=== PATIENT | female | born 1960 | race Caucasian/White ===

== ENCOUNTER 2017-04-22 12:20 | Inpatient (IN) | payer SELFPAY ==
[~2017-04-22] VITALS: Ht 160 cm; Wt 63.2 kg
[~2017-04-22 12:20] MED LIST: LISI-357 PO; MUCI600T PO; TYLE3 PO
[2017-04-22 12:23] VITALS: BP 177/97; PULSE 93; RESP 20; TEMP 99.2; O2SAT 97
--- NOTE | 2017-04-22 13:08 | PD ---
HPI Chief Complaint: Pain: Acute or Chronic Time Seen by Provider: 12:56 Travel History International Travel<30 days: No Contact w/Intl Traveler<30days: No Traveled to known affect area: No History of Present Illness HPI 56-year-old female with history of hypertension, presents to emergency department for evaluation of a right calcaneal fracture. Patient was seen and evaluated at [facility] April 18. She is diagnosed with a calcaneal fracture. She was scheduled to follow-up with Dr. Hassan on Wednesday, however that appointment was canceled. Agent went to the office today and was sent to [place] for evaluation and admission for surgical intervention. Patient reports pain on the right heel, controlled with her pain medication at home. Moderate in severity. She states at times her toes do feel numb. She denies any fever or chills. No new injury. She has no other symptoms to report. PFSH Past Medical History Diminished Hearing: No Hypertension: Yes (does not take meds for/no primary doctor) LMP: na Menopausal: Yes : 2 Para: 2 Tubal Ligation: Yes Past Surgical History Section: Yes Gynecologic Surgery: Yes (c section/tubal) Social History Alcohol Use: Yes (3 beers daily) Tobacco Use: No Substance Use: No Allergies-Medications (Allergen,Severity, Reaction): Coded Allergies: No Known Allergies (Unverified Allergy, Unknown, 04/22/17) Reported Meds & Prescriptions Reported Meds & Active Scripts Active Review of Systems Except as stated in HPI: all other systems reviewed are Neg Physical Exam Narrative GENERAL: Well-nourished female patient, sitting up in bed in no acute distress. SKIN: Focused skin assessment warm/dry. HEAD: Atraumatic. Normocephalic. EYES: Pupils equal and round. No scleral icterus. No injection or drainage. ENT: No nasal bleeding or discharge. Mucous membranes pink and moist. NECK: Trachea midline. No JVD. CARDIOVASCULAR: Regular rate and rhythm. No murmur appreciated. RESPIRATORY: No accessory muscle use. Clear to auscultation. Breath sounds equal bilaterally. GASTROINTESTINAL: Abdomen soft, non-tender, nondistended. Hepatic and splenic margins not palpable. MUSCULOSKELETAL: No obvious deformities. No clubbing. No cyanosis. No edema. Right lower extremity splint in place. Patient is able to wiggle the toes of the affected extremity. Cap refill is within normal limits. There is some bruising noted over the distal aspect of the right dorsal foot. NEUROLOGICAL: Awake and alert. No obvious cranial nerve deficits. Motor grossly within normal limits. Normal speech. PSYCHIATRIC: Appropriate mood and affect; insight and judgment normal. Data Data Last Documented VS Vital Signs Date Time Temp Pulse Resp B/P (MAP) Pulse Ox O2 Delivery O2 Flow Rate FiO2 04/22/17 12:23 99.2 93 20 177/97 (123) 97 Room Air Orders Orders Iv Access Insert/Monitor (04/22/17 14:09) Complete Blood Count With Diff (04/22/17 14:09) Basic Metabolic Panel (Bmp) (04/22/17 14:09) Coag Profile (04/22/17 14:09) Electrocardiogram (04/22/17 ) Chest, Single Ap (04/22/17 ) Admit Order (Ed Use Only) (04/22/17 14:36) Consult Orthopedic (04/22/17 ) Labs Laboratory Tests Test 04/22/17 14:20 White Blood Count 7.1 TH/MM3 Red Blood Count 3.65 MIL/MM3 Hemoglobin 11.5 GM/DL Hematocrit 34.5 % Mean Corpuscular Volume 94.4 FL Mean Corpuscular Hemoglobin 31.6 PG Mean Corpuscular Hemoglobin Concent 33.5 % Red Cell Distribution Width 13.1 % Platelet Count 260 TH/MM3 Mean Platelet Volume 7.8 FL Neutrophils (%) (Auto) 85.9 % Lymphocytes (%) (Auto) 7.1 % Monocytes (%) (Auto) 6.4 % Eosinophils (%) (Auto) 0.5 % Basophils (%) (Auto) 0.1 % Neutrophils # (Auto) 6.1 TH/MM3 Lymphocytes # (Auto) 0.5 TH/MM3 Monocytes # (Auto) 0.5 TH/MM3 Eosinophils # (Auto) 0.0 TH/MM3 Basophils # (Auto) 0.0 TH/MM3 CBC Comment DIFF FINAL Differential Comment Prothrombin Time 10.9 SEC Prothromb Time International Ratio 1.1 RATIO Activated Partial Thromboplast Time 28.5 SEC Blood Urea Nitrogen 6 MG/DL Creatinine 0.50 MG/DL Random Glucose 87 MG/DL Calcium Level 9.0 MG/DL Sodium Level 140 MEQ/L Potassium Level 3.9 MEQ/L Chloride Level 107 MEQ/L Carbon Dioxide Level 25.4 MEQ/L Anion Gap 8 MEQ/L Estimat Glomerular Filtration Rate 128 ML/MIN MDM Medical Decision Making Medical Screen Exam Complete: Yes Emergency Medical Condition: Yes Medical Record Reviewed: Yes Differential Diagnosis Fracture versus sprain versus contusion versus medical clearance versus normal examination Narrative Course 56-year-old female presents to emergency department for evaluation of a right calcaneal fracture, diagnosed Wednesday after a trip and fall. Patient has a splint on the right lower extremity. It is neurovascularly intact. I have contacted Dr. Callahan's office to discuss the patient. I received a call back from ADWOA Natarajan. He requests admission to medicine, nothing by mouth after midnight, and hopeful surgical intervention tomorrow if swelling isn't too much. He asks if the patient is in a splint that she stay in it until tomorrow when they evaluate the foot. Plan is discussed with the patient. I discussed the patient with Dr. Carrillo, however was managed services sales consultant. Patient will be admitted to his service with a consult placed to Dr. Callahan. Diagnosis Primary Impression: Calcaneal fracture Qualified Codes: S92.001D - Unspecified fracture of right calcaneus, subsequent encounter for fracture with routine healing Admitting Information Admitting Physician Requests: Admit Scripts No Active Prescriptions or Reported Meds Condition: Stable Joceline Andrew Apr 22, 2017 13:08
--- NOTE | 2017-04-22 14:32 | RADRPT ---
EXAM DATE/TIME: 04/22/2017 14:12 [facility] COMPARISON: CHEST SINGLE AP, January 26, 2014, 8:16. INDICATIONS : Evaluate for pneumonia, pneumothorax, or other communicable diseases. Pre op for right foot surgery. MEDICAL HISTORY : Smoker. SURGICAL HISTORY : None. ENCOUNTER: Initial ACUITY: 1 day PAIN SCORE: 0/10 LOCATION: Bilateral chest FINDINGS: A single view of the chest demonstrates the lungs to be symmetrically aerated without evidence of mas s, infiltrate or effusion. The cardiomediastinal contours are unremarkable. Osseous structures are intact. CONCLUSION: Normal examination. Jean Rae MD on April 22, 2017 at 14:29 Board Certified Radiologist. This report was verified electronically.
[2017-04-22] MEDS: SODIUM CHLOR 0.9% 1000 ML INJ 1,000 ML IV SCH (14:37)
[2017-04-22 14:39] LABS: AUTOMATED NEUTROPHIL # 6.1 TH/MM3 (1.8-7.7); BASOPHIL % 0.1 % (0.0-2.0); EOSINOPHIL % 0.5 % (0.0-4.0); HEMATOCRIT 34.5 % (35.0-46.0); HEMO FLAGS DIFF FINAL; LYMPH % 7.1 % (9.0-44.0); LYMPHOCYTE # 0.5 TH/MM3 (1.0-4.8); MEAN CELL VOLUME 94.4 FL (80.0-100.0); MEAN CORPUSCULAR HEMOGLOBIN 31.6 PG (27.0-34.0); MEAN CORPUSCULAR HGB CONC 33.5 % (32.0-36.0); MONO % 6.4 % (0.0-8.0); NEUT % 85.9 % (16.0-70.0); PLATELET COUNT 260 TH/MM3 (150-450); RED BLOOD COUNT 3.65 MIL/MM3 (4.00-5.30); RED CELL DISTRIBUTION WIDTH 13.1 % (11.6-17.2); WHITE BLOOD COUNT 7.1 TH/MM3 (4.0-11.0)
[2017-04-22] MEDS ORDERED: NALOXONE HCL 0.4 MG/ML AMP IV PUSH PRN (14:45)
[2017-04-22] MEDS ORDERED: LACTULOSE SYRUP 20 GM/30 ML CUP PO PRN (14:45)
[2017-04-22] MEDS ORDERED: ONDANSETRON HCL 4 MG/2 ML VIAL IVP PRN (14:45)
[2017-04-22] MEDS ORDERED: SENNOSIDES 8.6 MG TAB PO PRN (14:45)
[2017-04-22] MEDS ORDERED: BISACODYL 10 MG SUPP RECTAL PRN (14:45)
[2017-04-22] MEDS ORDERED: MAGNESIUM HYDROXIDE SUSP 30 ML CUP PO PRN (14:45)
[2017-04-22] MEDS ORDERED: ENALAPRILAT 1.25 MG/ML VIAL IV PUSH PRN (14:45)
[2017-04-22 14:55] LABS: BICARBONATE 25.4 MEQ/L (21.0-32.0); POTASSIUM 3.9 MEQ/L (3.5-5.1)
[2017-04-22 15:03] LABS: APTT (PATIENT) 28.5 SEC (24.3-30.1); INTERNATIONAL NORMALIZED RATIO 1.1 RATIO; PROTHROMBIN TIME - PATIENT 10.9 SEC (9.8-11.6)
--- NOTE | 2017-04-22 17:52 | HHI.HP ---
HPI Service [facility] Primary Care Physician Unknown Admission Diagnosis R CALCANEAL FX Diagnoses: Travel History International Travel<30 Days: No Contact w/Intl Traveler <30 Da: No Traveled to Known Affected Are: No History of Present Illness 56-year-old female with reported history of high blood pressure not on medication, who presents with constant sharp right foot pain following injury on Wednesday night. She fell with her entire weight on her right foot, was seen at [facility], diagnosed with calcaneal fracture, splinted, and discharged home. She saw orthopedics today, and have recommended admission to hospital for planned surgery tomorrow. Patient says that she otherwise feels all right. Denies any chest pain, shortness breath, nausea, vomiting, lightheadedness, dizziness. Denies any history of exertional chest pain. Review of Systems Except as stated in HPI: all other systems reviewed are Neg Past Family Social History Past Medical History Patient reports history of high blood pressure not on medication Past Surgical History Bilateral tubal ligation. Denies any other surgeries. Reported Medications patient denies taking any medications. Allergies: Coded Allergies: No Known Allergies (Unverified Allergy, Unknown, 04/22/17) Family History Mother passed secondary to CHF. Heart disease began in her 70s. Father in his 60s secondary to kidney failure. Social History Patient smoked one half pack per day cigarettes for the past 15 years. Patient drinks 2 beers on average every other day, sometimes more on the weekends. Denies ever having a problem with alcohol. On intake form, patient reported 3 beers daily. Denies any illicit drug use. Physical Exam Vital Signs Vital Signs Date Time Temp Pulse Resp B/P (MAP) Pulse Ox O2 Delivery O2 Flow Rate FiO2 04/22/17 12:23 99.2 93 20 177/97 (123) 97 Room Air Physical Exam GENERAL: patient sitting up in bed. Appears comfortable. Alert and oriented 3. SKIN: Warm and dry. HEAD: Atraumatic. Normocephalic. EYES: Pupils equal and round. No scleral icterus. No injection or drainage. ENT: No nasal bleeding or discharge. Mucous membranes pink and moist. NECK: Trachea midline. No JVD. CARDIOVASCULAR: Regular rate and rhythm. RESPIRATORY: No accessory muscle use. Clear to auscultation. Breath sounds equal bilaterally. GASTROINTESTINAL: Abdomen soft, non-tender, nondistended. Hepatic and splenic margins not palpable. MUSCULOSKELETAL: Extremities without clubbing, cyanosis, or edema. No obvious deformities. NEUROLOGICAL: Awake and alert. No obvious cranial nerve deficits. Motor grossly within normal limits. Five out of 5 muscle strengthin bilateral upper extremities. Right lower leg in splint. Distal profusion intact. Distal sensation intact.Normal speech. PSYCHIATRIC: Appropriate mood and affect; insight and judgment normal. Laboratory Laboratory Tests Test 04/22/17 14:20 White Blood Count 7.1 Red Blood Count 3.65 Hemoglobin 11.5 Hematocrit 34.5 Mean Corpuscular Volume 94.4 Mean Corpuscular Hemoglobin 31.6 Mean Corpuscular Hemoglobin Concent 33.5 Red Cell Distribution Width 13.1 Platelet Count 260 Mean Platelet Volume 7.8 Neutrophils (%) (Auto) 85.9 Lymphocytes (%) (Auto) 7.1 Monocytes (%) (Auto) 6.4 Eosinophils (%) (Auto) 0.5 Basophils (%) (Auto) 0.1 Neutrophils # (Auto) 6.1 Lymphocytes # (Auto) 0.5 Monocytes # (Auto) 0.5 Eosinophils # (Auto) 0.0 Basophils # (Auto) 0.0 CBC Comment DIFF FINAL Differential Comment Prothrombin Time 10.9 Prothromb Time International Ratio 1.1 Activated Partial Thromboplast Time 28.5 Blood Urea Nitrogen 6 Creatinine 0.50 Random Glucose 87 Calcium Level 9.0 Sodium Level 140 Potassium Level 3.9 Chloride Level 107 Carbon Dioxide Level 25.4 Anion Gap 8 Estimat Glomerular Filtration Rate 128 Result Diagram: 04/22/17 1420 04/22/17 1420 Imaging Last Impressions Chest X-Ray 04/22/17 0000 Signed Impressions: Service Date/Time: April 14:12 - CONCLUSION: Normal examination. MD Alfred Sierra VTE Risk Assessment Alfred VTE Risk Assessment: Mod/High Risk (score >= 2) VTE Pharm Contraindication: surgery in am [facility] Contraindication: LE injury/wound [place] Risk Assessment Model Point Value = 1 Point Value = 2 Point Value = 3 Point Value = 5 Age 41-60 Minor surgery BMI > 25 kg/m2 Swollen legs Varicose veins or History of unexplained or recurrent spontaneous Oral contraceptives or hormone replacement Sepsis (< 1 month) Serious lung disease, including pneumonia (< 1 month) Abnormal pulmonary function Acute myocardial infarction Congestive heart failure (< 1 month) History of inflammatory bowel disease Medical patient at bed rest Age 61-74 Arthroscopic surgery Major open surgery (> 45 min) Laparoscopic surgery (> 45 min) Malignancy Confined to bed (> 72 hours) Immobilizing plaster cast Central venous access Age >= 75 History of VTE Family history of VTE Factor V Leiden Prothrombin [id number] Lupus anticoagulant Anticardiolipin antibodies Elevated serum homocysteine Heparin-induced thrombocytopenia Other congenital or acquired thrombophilia Stroke (< 1 month) Elective arthroplasty Hip, pelvis, or leg fracture Acute spinal cord injury (< 1 month) Prophylaxis Regimen Total Risk Factor Score Risk Level Prophylaxis Regimen 0-1 Low Early ambulation 2 Moderate Order ONE of the following: *Sequential Compression Device (SCD) *Heparin 5000 units SQ BID 3-4 Higher Order ONE of the following medications: *Heparin 5000 units SQ TID *Enoxaparin/Lovenox 40 mg SQ daily (WT < 150 kg, CrCl > 30 mL/min) *Enoxaparin/Lovenox 30 mg SQ daily (WT < 150 kg, CrCl > 10-29 mL/min) *Enoxaparin/Lovenox 30 mg SQ BID (WT < 150 kg, CrCl > 30 mL/min) AND/OR *Sequential Compression Device (SCD) 5 or more Highest Order ONE of the following medications: *Heparin 5000 units SQ TID (Preferred with Epidurals) *Enoxaparin/Lovenox 40 mg SQ daily (WT < 150 kg, CrCl > 30 mL/min) *Enoxaparin/Lovenox 30 mg SQ daily (WT < 150 kg, CrCl > 10-29 mL/min) *Enoxaparin/Lovenox 30 mg SQ BID (WT < 150 kg, CrCl > 30 mL/min) AND *Sequential Compression Device (SCD) Assessment and Plan Assessment and Plan //Left foot calcaneal fracture = Management as per orthopedics. = Nothing by mouth at midnight. //Hypertensive. -Systolic blood pressures in the 170s on admission. Not on medication home. Enalapril as needed. //Suspected alcohol overuse. //Possible alcohol withdrawal. = We'll monitor for signs of alcohol withdrawal. Patient denies any history of withdrawal. = As patient is mildly tachycardic, somewhat hypertensive with systolics in the 170s. Will order CIWA protocol given significant alcohol use, reported as 3 beers daily. Continue to monitor. //Tobacco abuse. Cessation counseling provided. //DVT prophylaxis. SCDs ordered as able. Anticoagulation As per orthopedic surgery. Discussed Condition With patient,, nurse, ER physician Physician Certification 2 Midnight Certification Type: Admission for Inpatient Services Order for Inpatient Services The services are ordered in accordance with Medicare regulations or non- Medicare payer requirements, as applicable. In the case of services not specified as inpatient-only, they are appropriately provided as inpatient services in accordance with the 2-midnight benchmark. Estimated LOS (days): 2 days is the estimated time the patient will need to remain in the hospital, assuming treatment plan goals are met and no additional complications. Post-Hospital Plan: Not yet determined Carson Carrillo MD Apr 22, 2017 17:52
[2017-04-22 17:55] VITALS: BP 162/97; PULSE 76; RESP 18; TEMP 97.4; O2SAT 96
[2017-04-22] MEDS ORDERED: LORazepam 1 MG TAB PO PRN (18:15)
[2017-04-22] MEDS ORDERED: LORazepam 2 MG TAB PO PRN (18:15)
[2017-04-22] MEDS ORDERED: FLUMAZENIL 0.5 MG/5 ML VIAL IV PUSH PRN (18:15)
[2017-04-22] MEDS ORDERED: LORazepam 2 MG/ML VIAL IV PUSH PRN ×4 (18:15)
[2017-04-22 18:30] LABS: INDIRECT BILIRUBIN 0.4 MG/DL (0.0-0.8); TOTAL BILIRUBIN ADULT 0.5 MG/DL (0.2-1.0)
[2017-04-22] MEDS ORDERED: MORPHINE SULFATE 2 MG/ML INJ IV PUSH PRN (20:15)
[2017-04-22] MEDS ORDERED: METOPROLOL TARTRATE 25 MG TAB PO PRN (20:30)
[2017-04-22] MEDS ORDERED: SODIUM CHLORID 0.9% 500 ML IV PRN (20:30)
[2017-04-22] MEDS ORDERED: CHLORHEXIDINE GLUCONATE 2 % 1 PACK (2 CLOTHS) TOPICAL PRN (20:30)
[2017-04-22] MEDS ORDERED: POVIDONE IODINE 5% (ANTISEPSIS KIT) 4 APPLICATIONS EACH NARE PRN (20:30)
[2017-04-22] MEDS ORDERED: LACTATED RINGER'S 1000 ML IV PRN (20:30)
[2017-04-22] MEDS: SODIUM CHLORIDE 0.9% FLUSH 10 ML FLUSH IV FLUSH SCH (20:34)
[2017-04-22] MEDS: DOCUSATE SODIUM 50 MG/SENNA 8.6 MG TAB PO SCH (20:35)
[2017-04-22] MEDS: ACETAMINOPHEN/HYDROcodone 325 MG/5 MG TAB PO PRN (20:35)
[2017-04-22 20:40] VITALS: BP 151/95; PULSE 74; RESP 16; TEMP 97.9; O2SAT 95
[2017-04-23 01:00] VITALS: BP 135/77; PULSE 81; RESP 16; TEMP 97.3; O2SAT 98
[2017-04-23 04:50] VITALS: BP 125/77; PULSE 81; RESP 16; TEMP 97.3; O2SAT 96
[2017-04-23] MEDS: ACETAMINOPHEN/HYDROcodone 325 MG/5 MG TAB PO PRN (05:50)
[2017-04-23] MEDS: SODIUM CHLOR 0.9% 1000 ML INJ 1,000 ML IV SCH ×2 (05:52→21:02)
[2017-04-23] MEDS ORDERED: HYDR-3583 PO (06:53)
[2017-04-23] MEDS ORDERED: VITA500012 PO (06:53)
[2017-04-23] MEDS ORDERED: XARE10TA PO (06:53)
[2017-04-23] MEDS ORDERED: WALKER/ADULT/FO1 MIS (06:53)
[2017-04-23] MEDS ORDERED: VITA2000 PO (06:53)
[2017-04-23] MEDS ORDERED: CALCTAB19 PO (06:53)
--- NOTE | 2017-04-23 07:19 | PD.ORT.PN ---
Subjective Subjective Remarks s/p right calcaneus fx approx 6 days ago in [facility]. states has right heel pain. no other complaints Objective Vitals Vital Signs Date Time Temp Pulse Resp B/P (MAP) Pulse Ox O2 Delivery O2 Flow Rate FiO2 04/23/17 01:00 97.3 81 16 135/77 (96) 98 04/22/17 20:40 97.9 74 16 151/95 (113) 95 04/22/17 17:55 97.4 76 18 162/97 (118) 96 04/22/17 12:23 99.2 93 20 177/97 (123) 97 Room Air I/O 04/22/17 04/22/17 04/22/17 04/23/17 04/23/17 04/23/17 07:00 15:00 23:00 07:00 15:00 23:00 Intake Total 360 ml Balance 360 ml Intake Oral 360 ml # Voids 2 # Bowel Movements 0 Result Diagram: 04/22/17 1420 04/22/17 1420 Other Results Laboratory Tests Test 04/22/17 14:20 Prothromb Time International Ratio 1.1 RATIO Prothrombin Time 10.9 SEC (9.8-11.6) Objective Remarks RLE: +short leg splint. removed and ankle visualized. 1+ swelling and bruising. nvi Assessment & Plan Assessment and Plan 1) right calcaneus fx -npo -sign consents -surgery today for ORIF of calcaneus POST OP: -NWB -maintain splint at all times -elevate -Lovenox and DC with Xarelto -Scripts on chart -plan for DC home with walker when able -f/u with Sindy or ADWOA in 2 weeks Delgado Golden/Heel Stainer PA Apr 23, 2017 07:19
[2017-04-23 08:53] VITALS: BP 120/77; PULSE 67; RESP 18; TEMP 96.9; O2SAT 96
[2017-04-23 08:54] VITALS: BP 120/77; PULSE 67; RESP 18; TEMP 96.9; O2SAT 96
[2017-04-23] MEDS: DOCUSATE SODIUM 50 MG/SENNA 8.6 MG TAB PO SCH ×2 (09:00→20:59)
[2017-04-23] MEDS: SODIUM CHLORIDE 0.9% FLUSH 10 ML FLUSH IV FLUSH SCH ×2 (09:00→21:02)
[2017-04-23] MEDS ORDERED: ceFAZolin 2 GM PREMIX 50 ML ONE (10:07)
[2017-04-23] MEDS ORDERED: VANCOMYCIN HCL 1000 MG VIAL ONE (10:07)
[2017-04-23] MEDS ORDERED: ACETAMINOPHEN 1000 MG/100 ML 100 ML IV ONE (10:07)
[2017-04-23] MEDS: GENTAMICIN SULFATE 80 MG/2 ML VIAL ONE (12:00)
[2017-04-23] MEDS ORDERED: diphenhydrAMINE HCL 25 MG CAP PO PRN (13:15)
[2017-04-23] MEDS ORDERED: Post-op Orders (for Pharmacy) XX ONE (13:15)
[2017-04-23] MEDS ORDERED: MORPHINE SULFATE 4 MG/ML INJ IV PUSH PRN (13:15)
--- NOTE | 2017-04-23 13:17 | PD.OP ---
cc: Tanner Merritt MD Operative Report Date of Surgery: Apr 23, 2017 Preoperative Diagnosis: Displaced comminuted right calcaneus fracture Postoperative Diagnosis: Same Procedure: Open reduction internal fixation right calcaneus Anesthesia: Gen. Surgeon: Tanner Merritt Slat Basket Maker Helper(s): JAVIER Paredes PA-C The surgical procedure was assisted by my physician assistant toddler teacher. My P.A. presence was necessary throughout this case for the manipulation and positioning of the surgical extremity. My P.A. was assisting me throughout the duration of this procedure. The skill set of a physician assistant toddler teacher was medically necessary to complete this procedure. During the surgical case the clinical pharmacy technician was working at the back table and the physician assistant toddler teacher was directly assisting me. Operation and Findings: Tourniquet time -- 42 minutes at 250 mmHg Informed consent obtained, operative site was marked. The foot and ankle were seen and evaluated this morning. Soft tissue swelling had significantly improved and appeared to be ready for surgery. He was brought to the operating room and placed on the operating room table. He was given intravenous sedation, general endotracheal anesthesia. He received IV antibiotics and was placed in the lateral decubitus position. Foot and leg were prepped with alcohol, followed by Hibiclens, draped in usual sterile fashion. A time out procedure was preformed. The procedure began with a 4 centimeter incision over the lateral aspect of the calcaneus centers over the subtalar joint. A full thickness flap was carefully elevated. The perineal tendons were also mobilized. Periosteum was elevated off the calcaneous. At this point the leg was elevated. The tourniquet was inflated. Attention was now turned to exposure of the calcaneus. The lateral wall was comminuted. A Steinmann pin was placed into the talus and into the calcaneus. Laminar thimble press operator was now placed to help distract the fracture. Articular surface was now visualized. Articular surface was in several fragments. The medial fragment was elevated and reduced up to the talus and the K-wire was used to hold provisional fixation. Next, the lateral and posterior fragments of the posterior facet were reduced. The talus was used as a template for reduction. The K-wires were used to hold provisional fixation. The laminar thimble press operator was now used to distract the posterior tuberosity. A Shands pin was placed to help joystick the insurance business analyst tuberosity into appropriate position. Multiple K-wires result provisional fixation. Multiplanar fluoroscopy confirmed well aligned fracture. The anterior process was now reduced. This keyed into appropriate position. Additional K wires were used to hold provisional fixation. At this point a Synthes calcaneus plate was selected. Plate was placed underneath the peroneal tendons. Plate was provisionally held the bone with K wires. 2.7 cortical lag screws were placed through the plate to compress the posterior facet fragments. Good compression was obtained. Additional cortical and locking screws were placed into the plate. 4 small percutaneous incisions were made around the posterior heel. 3 long 3.5 cortical screws were placed in the posterior tuberosity into the anterior process. All screws were predrilled and premeasured for appropriate lengths. Fluoroscopy confirmed appropriate alignment of fracture. Final fluoroscopy confirmed well aligned fracture with well-placed hardware. Wound was thoroughly irrigated. Tourniquet was released. Hemostasis was confirmed. Fascia was closed with 0 Vicryl, subcutaneous tissues closed with 3-0 Vicryl, and skin was closed with 3-0 nylon. Sterile dressings were applied. Patient was placed into a well molded well-padded splint. Patient was transferred to recovery in stable condition. Tanner Merritt MD Apr 23, 2017 13:17
[2017-04-23] MEDS ORDERED: DO NOT ADM ANY ANTICOAGULANT DRUGS PRN (13:42)
[2017-04-23] MEDS ORDERED: *morphine SULFATE 10 MG/ML PERIprocedure ONLY ONE (13:52)
[2017-04-23] MEDS: LACTATED RINGER'S 1000 ML INJ 1,000 ML IV SCH ×2 (14:02→21:02)
[2017-04-23] MEDS ORDERED: ceFAZolin 2 GM PREMIX 50 ML IV SCH (16:00)
--- NOTE | 2017-04-23 16:02 | RADRPT ---
EXAM DATE/TIME: 04/23/2017 12:53 [facility] COMPARISON: No previous studies available for comparison. INDICATIONS : Surgical repair of right heel. MEDICAL HISTORY : None. SURGICAL HISTORY : None. ENCOUNTER: Initial ACUITY: 1 day PAIN SCORE: Non-responsive. LOCATION: Right heel FINDINGS: 5 magnified C-arm spot views are centered over the calcaneus and labeled right. These images show no orthopedic plate and multiple orthopedic screws traversing the calcaneus. Good alignment seen on thes e limited images. The screws appear contained within the cortical confines of the calcaneus. CONCLUSION: Limited images as detailed above. Shiv Clements Jr., MD on April 23, 2017 at 15:58 Board Certified Radiologist. This report was verified electronically.
[2017-04-23 16:35] VITALS: BP 123/77; PULSE 104; RESP 18; TEMP 97.6; O2SAT 96
[2017-04-23] MEDS: KETOROLAC TROMETHAMINE 30 MG/ML (IVP) VIAL IV PUSH SCH (17:05)
[2017-04-23] MEDS: diphenhydrAMINE HCL 25 MG CAP PO PRN (17:06)
--- NOTE | 2017-04-23 17:10 | MB ---
cc: ADRIEN ARVIZU DATE OF ADMISSION 04/22/2017 DATE OF CONSULTATION 04/23/2017 REASON FOR CONSULTATION Comminuted displaced right calcaneus fracture. CONSULTING PHYSICIAN Dr. Carrillo. HISTORY Ester is a 56-year-old female who had an injury to her foot approximately six days ago. She was walking down a hill and fell. She injured her right foot. She initially went to [facility]. X-rays and CT scan revealed a comminuted calcaneus fracture. She was subsequently discharged home. She presented back to the emergency room at [place]. The patient was found to have a displaced right calcaneus fracture. She is currently awake and alert on the orthopedic floor. Her only complaint is her right foot. Pain is worse with movement. She has been smoking approximately one-third pack of surgery per day. She has been trying to quit. PAST MEDICAL HISTORY ILLNESSES Hypertension. SURGERIES Tubal ligation. MEDICATIONS None prior to hospitalization. ALLERGIES None. FAMILY HISTORY Positive for CHF in her mother kidney failure in her father. SOCIAL HISTORY The patient has smoked approximately one-half pack a day for the past 15 years. She drinks alcohol approximately two drinks every other day. She denies drug use. REVIEW OF SYSTEMS The patient denies headache, visual changes, neck pain, chest pain, shortness of breath, abdominal pain, nausea, vomiting or recent weight loss, numbness or tingling of extremities. She denies bowel or bladder incontinence. She complains of right ankle pain. PHYSICAL EXAMINATION GENERAL: The patient is a thin 56-year-old female in no acute distress. She is awake and alert. She is alert and oriented x3. She is in no acute distress. VITAL SIGNS: Temperature 96.9, pulse 67, respirations 18, blood pressure 120/77, O2 sat 96% on room air. HEAD: The patient is normocephalic. Pupils are equal. NECK: Soft, nontender. Trachea is midline. ABDOMEN: Soft, nontender, nondistended. EXTREMITIES: Examination of bilateral upper extremities reveals no pain with shoulder, elbow or wrist motion. She has intact sensation in all fingers. She has good capillary refill in all fingers. Skin is intact in both hands. Examination of the left leg reveals no pain with hip, knee or ankle motion. Skin is intact. Dorsalis pedis pulse is palpable. Sensation is intact. Examination of the right leg reveals no pain with hip or knee motion. She has mild swelling of the ankle. Skin is intact. She is tender to palpation over the calcaneus. Dorsalis pedis pulse is palpable. She has good capillary refill in her toes. Posterior pulse is also palpable. Sensation is intact in right foot. X-RAYS X-rays and CT scan of the right ankle and foot were reviewed from [facility]. CT and x-rays revealed comminuted depressed intraarticular right calcaneus fracture. IMPRESSION 1. Nicotine dependence. 2. Displaced comminuted right calcaneus fracture. 3. Hypertension. PLAN I had a lengthy discussion with the patient regarding her treatment options. At this point I would recommend open reduction, internal fixation right calcaneus. The fracture has significant depression and the articular surface is out of place. Options include surgical and nonsurgical options. Nonsurgical options would likely yield increased pain and arthritis down the road. 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 She would like to have optimal function of her foot. I discussed the need to stop smoking. She states she agrees to completely stop smoking immediately. The risks of surgery include bleeding, infection, injury to arteries, nerves, blood vessels, nonunion, malunion, painful hardware, wound infection, need for amputation, as well as medical complications including blood clot, stroke, heart attack and were discussed. All questions were answered. I will plan on surgery today. A mid-level provider in my office, nurse practitioner or PA, may see this patient on a follow-up basis and continue to implement the objective of this plan including: Starting or adjusting medications, injections of muscle, tendon, bursa or joints, cast application, orthotic or brace application, physical therapy, further radiographic studies including x-ray, MRI, CT, ultrasounds or bone scan, vascular studies, neurologic studies, or other specialist consultations, and proceeding with surgical management as appropriate. MD REBECCA Klein/VALERIE /1:07 PM /4:40 PM
[2017-04-23] MEDS: ACETAMINOPHEN/HYDROcodone 325 MG/10 MG TAB PO PRN ×2 (17:17→20:58)
--- NOTE | 2017-04-23 17:19 | HHI.PR ---
Subjective Remarks Seen following surgery today. He reports the pain is controlled. Denies any chest pressure this breath. Denies any nausea or vomiting. Objective Vital Signs Date Time Temp Pulse Resp B/P (MAP) Pulse Ox O2 Delivery O2 Flow Rate FiO2 04/23/17 16:35 97.6 104 18 123/77 (92) 96 04/23/17 14:27 98.5 80 15 155/88 (110) 99 Nasal Cannula 2 04/23/17 14:15 83 13 138/80 (99) 99 Nasal Cannula 2 04/23/17 14:00 84 15 153/88 (109) 96 Nasal Cannula 4 04/23/17 13:44 98.5 104 21 167/91 (116) 94 Nasal Cannula 4 04/23/17 08:54 96.9 67 18 120/77 (91) 96 04/23/17 08:53 96.9 67 18 120/77 (91) 96 04/23/17 04:50 97.3 81 16 125/77 (93) 96 04/23/17 01:00 97.3 81 16 135/77 (96) 98 04/22/17 20:40 97.9 74 16 151/95 (113) 95 04/22/17 17:55 97.4 76 18 162/97 (118) 96 I/O 04/22/17 04/22/17 04/22/17 04/23/17 04/23/17 04/23/17 07:00 15:00 23:00 07:00 15:00 23:00 Intake Total 360 ml 0 ml 1050 ml Output Total 90 ml Balance 360 ml 0 ml 960 ml Intake Oral 360 ml 0 ml IV Total 50 ml Other 1000 ml Output Estimated Blood Loss 90 ml # Voids 2 2 # Bowel Movements 0 0 Result Diagram: 04/22/17 1420 04/22/17 1420 Objective Remarks GENERAL: patient lying in bed. Appears comfortable. SKIN: Warm and dry. HEAD: Normocephalic. EYES: No scleral icterus. No injection or drainage. NECK: Supple, trachea midline. No JVD or lymphadenopathy. CARDIOVASCULAR: Regular rate and rhythm without murmurs, gallops, or rubs. RESPIRATORY: Breath sounds equal bilaterally. No accessory muscle use. GASTROINTESTINAL: Abdomen soft, non-tender, nondistended. MUSCULOSKELETAL: No cyanosis, or edema. right leg dressed with drain serosanguineous fluid. BACK: Nontender without obvious deformity. No CVA tenderness. A/P Assessment and Plan //Left foot calcaneal fracture postoperative ORIF performed 04/23. = Management as per orthopedics. = Drain in place to be removed postop day 2. = Await return of bowel function //Hypertensive. -Systolic blood pressures in the 170s on admission. Not on medication home. Blood pressure subsequently acceptable today. Continue Enalapril as needed. //Suspected alcohol overuse. //Possible alcohol withdrawal. = We'll monitor for signs of alcohol withdrawal. Patient denies any history of withdrawal. = As patient is mildly tachycardic, somewhat hypertensive with systolics in the 170s. Will order CIWA protocol given significant alcohol use, reported as 3 beers daily. Continue to monitor. = No signs of alcohol withdrawal. Discontinue CIWA protocol. //Tobacco abuse. Cessation counseling provided. //DVT prophylaxis. SCDs ordered as able. Anticoagulation As per orthopedic surgery. Discharge Planning Drain to be removed 04/25 by orthopedics. PT following. Appreciate assistance Carson Carrillo MD Apr 23, 2017 17:19
[2017-04-23 20:00] VITALS: BP 137/72; PULSE 87; RESP 17; TEMP 98; O2SAT 97
--- NOTE | 2017-04-23 23:21 | EKG ---
Date Performed: 04/22/2017 Time Performed: 14:31:56 PTAGE: 56 years EKG: Sinus rhythm NORMAL ECG Compared to the PREVIOUS TRACING from 01/26/14, no significant change DOCTOR: Alex Gtz Interpretating Date/Time 04/23/2017 23:19:33
[2017-04-24] VITALS (8 sets, daily range): BP systolic 113–142; BP diastolic 65–83; PULSE 71–88; RESP 16–18; TEMP 96.3–99.1; O2SAT 94–97
[2017-04-24] MEDS: diphenhydrAMINE HCL 25 MG CAP PO PRN ×3 (00:08→20:57)
[2017-04-24] MEDS: ACETAMINOPHEN/HYDROcodone 325 MG/10 MG TAB PO PRN ×4 (00:08→23:42)
[2017-04-24] MEDS: KETOROLAC TROMETHAMINE 30 MG/ML (IVP) VIAL IV PUSH SCH ×5 (00:09→23:43)
[2017-04-24] MEDS: SODIUM CHLORIDE 0.9% FLUSH 10 ML FLUSH IV FLUSH PRN ×2 (00:11→06:09)
[2017-04-24] MEDS: VANCOMYCIN INJ 1,000 MG in SODIUM CHLOR 0.9% 250 ML INJ 250 ML IV SCH ×2 (00:11→12:05)
[2017-04-24] MEDS: LACTATED RINGER'S 1000 ML INJ 1,000 ML IV SCH ×3 (09:06→23:44)
[2017-04-24] MEDS: DOCUSATE SODIUM 50 MG/SENNA 8.6 MG TAB PO SCH ×2 (10:05→20:54)
[2017-04-24] MEDS: ceFAZolin 2 GM PREMIX 50 ML IV SCH ×3 (10:05→23:43)
--- NOTE | 2017-04-24 10:05 | HHI.PR ---
Subjective Remarks Complaints od runny nose , says she has allergies. Will start flonase. No fever or chills. No cough. No n/v/d/c. Denies cp, sob. Pain is controlled by meds. vac will be DC d tomorrow. Objective Vitals Vital Signs Date Time Temp Pulse Resp B/P (MAP) Pulse Ox O2 Delivery O2 Flow Rate FiO2 04/24/17 08:00 98.1 72 18 121/76 (91) 97 04/24/17 04:00 97.4 71 17 116/67 (83) 94 04/24/17 00:00 96.6 79 16 113/65 (81) 96 04/23/17 20:00 98.0 87 17 137/72 (93) 97 04/23/17 16:35 97.6 104 18 123/77 (92) 96 04/23/17 14:27 98.5 80 15 155/88 (110) 99 Nasal Cannula 2 04/23/17 14:15 83 13 138/80 (99) 99 Nasal Cannula 2 04/23/17 14:00 84 15 153/88 (109) 96 Nasal Cannula 4 04/23/17 13:44 98.5 104 21 167/91 (116) 94 Nasal Cannula 4 I/O 04/23/17 04/23/17 04/23/17 04/24/17 04/24/17 04/24/17 07:00 15:00 23:00 07:00 15:00 23:00 Intake Total 0 ml 1050 ml 720 ml 720 ml Output Total 90 ml Balance 0 ml 960 ml 720 ml 720 ml Intake Oral 0 ml 720 ml 720 ml IV Total 50 ml Other 1000 ml Output Estimated Blood Loss 90 ml # Voids 2 3 2 # Bowel Movements 0 Result Diagram: 04/22/17 1420 04/22/17 1420 Imaging Last Impressions Foot X-Ray 04/23/17 0000 Signed Impressions: Service Date/Time: Sunday, April 23, 2017 12:53 - CONCLUSION: Limited images as detailed above. Shiv Clements Jr., MD Chest X-Ray 04/22/17 0000 Signed Impressions: Service Date/Time: April 14:12 - CONCLUSION: Normal examination. Jena Rae MD Objective Remarks GENERAL: patient lying in bed. Appears comfortable. NECK: Supple, trachea midline. No JVD or lymphadenopathy. CARDIOVASCULAR: Regular rate and rhythm without murmurs, gallops, or rubs. RESPIRATORY: Breath sounds equal bilaterally. No accessory muscle use. GASTROINTESTINAL: Abdomen soft, non-tender, nondistended. MUSCULOSKELETAL: No cyanosis, or edema. right leg dressed with drain serosanguineous fluid. BACK: Nontender without obvious deformity. No CVA tenderness. A/P Assessment and Plan Left foot calcaneal fracture postoperative S/P ORIF on 04/23. Management as per orthopedics. Drain in place to be removed postop day 2. Await return of bowel function Hypertensive. Systolic blood pressures in the 170s on admission. Not on medication home. Blood pressure subsequently acceptable today. Continue Enalapril as needed. Suspected alcohol overuse. Possible alcohol withdrawal. We'll monitor for signs of alcohol withdrawal. Patient denies any history of withdrawal. As patient is mildly tachycardic, somewhat hypertensive with systolics in the 170s. Will order CIWA protocol given significant alcohol use, reported as 3 beers daily. Continue to monitor. No signs of alcohol withdrawal. Discontinue CIWA protocol. Tobacco abuse. Cessation counseling provided. Allergic rhinitis: Continue Benadryl, add Flonase. DVT prophylaxis. SCDs ordered as able. Anticoagulation As per orthopedic surgery. Discharge Planning Drain to be removed 04/25 by orthopedics. PT following. Appreciate assistance. Jennifer Wright MD Apr 24, 2017 10:05
[2017-04-24] MEDS: SODIUM CHLORIDE 0.9% FLUSH 10 ML FLUSH IV FLUSH SCH ×2 (10:06→20:54)
[2017-04-24] MEDS: SODIUM CHLOR 0.9% 1000 ML INJ 1,000 ML IV SCH ×2 (12:06→23:43)
--- NOTE | 2017-04-24 12:18 | HHI.DCPOC ---
Discharge Care Plan Goals to Promote Your Health * To prevent worsening of your condition and complications * To maintain your health at the optimal level Directions to Meet Your Goals Take your medications as prescribed Follow your dietary instruction Follow activity as directed Keep your appointments as scheduled Take your immunizations and boosters as scheduled If your symptoms worsen call your PCP, if no PCP go to Urgent Care Center or Emergency Room Smoking is Dangerous to Your Health. Avoid second hand smoke Call the 24-hour hour crisis hotline for domestic abuse at Jennifer Wright MD Apr 24, 2017 12:18
[2017-04-24] MEDS ORDERED: PERI PO (12:22)
--- NOTE | 2017-04-24 15:11 | PD.ORT.PN ---
Subjective Post Op Day #: 1 Subjective Remarks Patient ambulatory around room with walker and NWB. Patient reports mild to moderate pain. Objective Vitals Vital Signs Date Time Temp Pulse Resp B/P (MAP) Pulse Ox O2 Delivery O2 Flow Rate FiO2 04/24/17 12:00 96.3 82 18 125/82 (96) 97 04/24/17 08:00 98.1 72 18 121/76 (91) 97 04/24/17 04:00 97.4 71 17 116/67 (83) 94 04/24/17 00:00 96.6 79 16 113/65 (81) 96 04/23/17 20:00 98.0 87 17 137/72 (93) 97 04/23/17 16:35 97.6 104 18 123/77 (92) 96 I/O 04/23/17 04/23/17 04/23/17 04/24/17 04/24/17 04/24/17 07:00 15:00 23:00 07:00 15:00 23:00 Intake Total 0 ml 1050 ml 720 ml 720 ml Output Total 90 ml Balance 0 ml 960 ml 720 ml 720 ml Intake Oral 0 ml 720 ml 720 ml IV Total 50 ml Other 1000 ml Output Estimated Blood Loss 90 ml # Voids 2 3 2 # Bowel Movements 0 Result Diagram: 04/22/17 1420 04/22/17 1420 Objective Remarks RLE: +short leg splint C/D/I. Patient moves toes and has good sensation to light touch x 5. BCR X 5. Drain in place. Assessment & Plan Ortho Post Op Day #: 1 Problem List: Assessment and Plan 1) POD #1: ORIF of right calcaneus fx -NWB -maintain splint at all times -remove drain on POD #2 -elevate -Lovenox and DC with Xarelto -Scripts on chart -plan for DC home with walker when able -f/u with Sindy or [facility] in 2 weeks Trevor Jones Apr 24, 2017 15:11
[2017-04-24] MEDS: FLUTICASONE PROPIONATE 50 MCG/ACT 16 GM NASAL SPRAY EACH NARE SCH (16:32)
[2017-04-25] VITALS: BP 138/83; PULSE 96; RESP 16; TEMP 98.4; O2SAT 98
[2017-04-25 04:00] VITALS: BP 141/84; PULSE 90; RESP 16; TEMP 97.8; O2SAT 97
[2017-04-25] MEDS: ACETAMINOPHEN/HYDROcodone 325 MG/10 MG TAB PO PRN ×2 (07:37→10:55)
[2017-04-25] MEDS: ceFAZolin 2 GM PREMIX 50 ML IV SCH (07:37)
[2017-04-25] MEDS: diphenhydrAMINE HCL 25 MG CAP PO PRN (07:44)
[2017-04-25 08:00] VITALS: BP 151/95; PULSE 84; RESP 18; TEMP 99.5; O2SAT 95
--- NOTE | 2017-04-25 08:14 | PD.ORT.PN ---
Subjective Subjective Remarks No significant complaints. Pain appears to well-controlled. She has multiple questions Objective Vitals Vital Signs Date Time Temp Pulse Resp B/P (MAP) Pulse Ox O2 Delivery O2 Flow Rate FiO2 04/25/17 04:00 97.8 90 16 141/84 (103) 97 04/25/17 00:00 98.4 96 16 138/83 (101) 98 04/24/17 20:00 99.1 88 18 142/83 (102) 95 04/24/17 19:50 97 04/24/17 16:00 97.6 84 18 126/80 (95) 96 04/24/17 15:57 97 04/24/17 12:00 96.3 82 18 125/82 (96) 97 I/O 04/24/17 04/24/17 04/24/17 04/25/17 04/25/17 04/25/17 07:00 15:00 23:00 07:00 15:00 23:00 Intake Total 720 ml 720 ml 720 ml 480 ml Output Total 40 ml Balance 720 ml 720 ml 720 ml 440 ml Intake Oral 720 ml 720 ml 720 ml 480 ml Output Drainage Total 40 ml # Voids 2 2 3 3 # Bowel Movements 1 Result Diagram: 04/22/17 1420 04/22/17 1420 Objective Remarks RLE: +short leg splint C/D/I. Patient moves toes and has good sensation to light touch x 5. BCR X 5. Drain in place. Assessment & Plan Ortho Post Op Day #: 2 Problem List: Assessment and Plan 1) POD #2: ORIF of right calcaneus fx -NWB -maintain splint at all times -remove drain today -elevate -Lovenox and DC with Xarelto -Scripts on chart -plan for DC home with walker today -f/u with Sindy or [facility] in 2 weeks Rakesh Albert MD Apr 25, 2017 08:14
[2017-04-25] MEDS: DOCUSATE SODIUM 50 MG/SENNA 8.6 MG TAB PO SCH (10:55)
[2017-04-25] MEDS: SODIUM CHLORIDE 0.9% FLUSH 10 ML FLUSH IV FLUSH SCH (10:56)
[2017-04-25] MEDS: FLUTICASONE PROPIONATE 50 MCG/ACT 16 GM NASAL SPRAY EACH NARE SCH (10:56)
== END 2017-04-25 12:30 | disposition home or self-care (01) | DRG 505 ==
LOC: NEPD 12:20 → NEDA 14:39 → N06B 18:04
PROVIDERS: ADMIT Family Medicine; ATTEND Family Medicine
PROC: 0QSL04Z Reposition Right Tarsal with Internal Fixation Device, Open Approach (ICD-10-PCS; principal; 2017-04-23 11:15)
DX: S92.001A Unspecified fracture of right calcaneus, initial encounter for closed fracture (principal); I10 Essential (primary) hypertension; F17.210 Nicotine dependence, cigarettes, uncomplicated; Y93.01 Activity, walking, marching and hiking; J30.9 Allergic rhinitis, unspecified; R00.0 Tachycardia, unspecified; W17.81XA Fall down embankment (hill), initial encounter
CPT/HCPCS: 71010; 73650; 76000; 80048; 80076; 85025; 85610; 85730; 93005; 94150; C1713; J0131; J0690; J1580; J1885; J2270; J3370; J7030; J7050; J7120

== ENCOUNTER → 2017-06-01 | Outpatient (CLI) | payer SELFPAY ==
[~2017-06-01] MED LIST changes: +CALCTAB19 PO; +HYDR-3583 PO; -LISI-357 PO; -MUCI600T PO; +PERI PO; -TYLE3 PO; +VITA2000 PO; +VITA500012 PO; +WALKER/ADULT/FO1 MIS; +XARE10TA PO
== END ==
LOC: HORT 12:52
PROVIDERS: ATTEND Physician Assistant
DX: S92.001A Unspecified fracture of right calcaneus, initial encounter for closed fracture (principal); X58.XXXA Exposure to other specified factors, initial encounter
CPT/HCPCS: L2114